=== PATIENT | female | born 1995 | race Caucasian/White ===

== ENCOUNTER 2017-07-07 06:28 | Inpatient (IN) | payer BC ==
--- NOTE | 2017-07-07 08:42 | HP ---
The patient is in room 3331. She has been in the room for 30 minutes. She is not on the computer [employer]. 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 She has not had any prior history of such symptoms in the emergency room, she underwent ultrasound revealing normal gallbladder ultrasound and CAT scan obtained revealed pericholecystic fluid. Patient's liver functio n tests are normal. White count 11, hemoglobin 15. When the patient was in high school, 17-18 years of age, she had it was like irritable bowel syndrome and had an upper endoscopy, documented ulcers, treated for PPIs. She has not been taking this PPIs recently. ALLERGIES: CEPHALOSPORINS. The patient received ZOSYN, partial dose signature resulting in hives an d respiratory distress. She subsequently received Levaquin there. TOBACCO: None. ALCOHOL: None. MEDICATIONS: None. PAST SURGICAL HISTORY: [place] tooth extraction. PAST MEDICAL HISTORY: As above, high school years, irritable bowel syndrome, upper and lower endosco py, camera endoscopy, PPIs treated ulcers, no recurrence. She has not been on PPIs for years. REVIEW OF SYSTEMS: [place] point noncontributory. PHYSICAL EXAMINATION: VITAL SIGNS: Blood pressure 115/68, respiratory rate 18, heart rate 68. HEENT: Unremarkable. Sclerae nonicteric. LUNGS: Clear to auscultation. CARDIAC: Regular rate and rhythm without murmur or gallop. ABDOMEN: Soft, tenderness in right upper quadrant with guarding. EXTREMITIES: Unremarkable. ASSESSMENT AND PLAN: History and exam suggestive of cholecystitis. Ultrasound is normal. CT scan s uggests garrett-inflammatory changes. We would recommend HIDA scan, ejection fraction and pending these results, she may need Gastroenterology consultation and we will await the results.
[2017-07-07] MEDS ORDERED: Acetaminophen 1,000 MG in Premix Bag 1 BAG IVPB PRN (09:03)
[2017-07-07] MEDS ORDERED: Ketorolac Tromethamine 30 MG/ML VIAL IVP PRN (09:03)
[2017-07-07] MEDS ORDERED: Scopolamine 1.5 mg/72 hour Patch TOP SCH (09:15)
[2017-07-07] MEDS: Pantoprazole 40 MG VIAL IVP SCH ×2 (09:40→19:56)
[2017-07-07] MEDS: Sodium Chloride 0.9% 1,000 ML IV SCH ×2 (09:41→18:17)
[2017-07-07 10:03] VITALS: BMI 22.7
[2017-07-07] MEDS ORDERED: Acetaminophen 1,000 MG in Premix Bag 1 BAG IVPB SCH (14:00)
[2017-07-07] MEDS ORDERED: Ketorolac Tromethamine 30 MG/ML VIAL IVP SCH (14:00)
[2017-07-07] MEDS ORDERED: Glycopyrrolate 0.2 MG/ML 5 ML SYRINGE ONE (14:13)
[2017-07-07] MEDS ORDERED: Lidocaine 1% PF 5 ML VIAL ONE (14:13)
[2017-07-07] MEDS ORDERED: Dexamethasone 20 MG/5 ML VIAL ONE (14:13)
[2017-07-07] MEDS ORDERED: Ondansetron HCl/PF 4 MG/2 ML Vial ONE (14:13)
[2017-07-07] MEDS ORDERED: PROPOFOL 200 MG/20 ML VIAL ONE (14:13)
--- NOTE | 2017-07-07 14:44 | NM ---
HEPATOBILIARY SCAN: The patient was given 4.8 mCi of Technetium labelled mebrofenin IV. HISTORY: Abdominal pain. FINDINGS: Initial imaging shows normal liver activity. The bile ducts begin to visualize by 10 minutes. Gallb ladder begins to visualize by 13 minutes. Intestinal activity is confirmed. At 1 hour the patient was given 1.2 mcg CCK slow IV. The gallbladder ejection fraction was recorded at 15%. IMPRESSION: 1. Normal visualization of the gallbladder. 2. Decreased gallbladder ejection fraction. POS: [facility]
[2017-07-07] MEDS ORDERED: Midazolam HCl 2 mg/2 ml Vial ONE ×2 (16:13→16:45)
[2017-07-07] MEDS ORDERED: Levofloxacin 500 mg/D5W 100 ml Premix Bag ONE (16:13)
[2017-07-07] MEDS ORDERED: Bupivacaine 0.25% HCL 30 ML VIAL ONE (16:41)
[2017-07-07] MEDS ORDERED: Lidocaine 1% w/Epinephrine 1:200K 30 ML VIAL ONE (16:41)
[2017-07-07] MEDS ORDERED: Fentanyl 100 MCG/2 ML VIAL ONE ×3 (16:45→18:45)
[2017-07-07] MEDS ORDERED: Bupivacaine PF 0.5% 30 ML VIAL ONE (17:06)
[2017-07-07] MEDS ORDERED: Morphine Sulfate 2 MG/ML SYRINGE SLOW IVP PRN (17:22)
[2017-07-07] MEDS ORDERED: HYDROmorphone 2 MG/ML VIAL SLOW IVP PRN (17:22)
[2017-07-07] MEDS ORDERED: Promethazine HCl 25 MG/ML VIAL SLOW IVP PRN (17:22)
[2017-07-07] MEDS ORDERED: Meperidine HCl/PF 25 MG/ML VIAL SLOW IVP PRN (17:22)
[2017-07-07] MEDS ORDERED: traMADol HCl 50 MG TAB PO PRN ×2 (17:55)
[2017-07-07] MEDS ORDERED: Acetaminophen 500 MG TAB PO PRN (17:55)
[2017-07-07 19:49] VITALS: BP 103/61; TEMP 97.7
--- NOTE | 2017-07-07 20:29 | OP ---
DATE OF PROCEDURE: 07/07/2017 PREOPERATIVE DIAGNOSES: Biliary dyskinesia, cholecystitis, history of peptic ulcer disease, history of Irritable bowel disease. PROCEDURES PERFORMED: Laparoscopic video cholecystectomy. Laparoscopic evaluation of the abdominal cavity, noting absence of Meckel's diverticulum, noting normal appendix, noting normal gynecological structures. EGD normal. SURGEON: Dr. Yosvany Carson ANESTHESIA: General. Local 0.25% Marcaine, 30 mL, mixed with 2% Xylocaine, 20 mL. PROCEDURE IN DETAIL: The patient was taken to the operating room where under general anesthesia, abd omen was prepared with ChloraPrep, draped in routine fashion. Local anesthetic mixture infiltrated i nto skin and subcutaneous tissue about each port site. Infraumbilical incision made and pneumoperito neum to 15 mmHg obtained with the Veress needle, replacing it with a 5 port and video laparoscope ins erted. Right subxiphoid incision made and a right subcostal incision made mid clavicular anterior ax illary lines and 5 mm ports placed. Liver appeared to be normal. Omentum was adherent to the gallbl adder body taken down with blunt and sharp dissection using cautery for hemostasis. Fundus grasped a nd reflected cephalad. Infundibulum of the gallbladder grasped and reflected laterally. Cystic lisa ry and duct dissected free. Critical view obtained with pericholecystic dissection 2/3 of the cystic plate, cystic artery and duct doubly clipped proximally, divided, and gallbladder dissected free fro m the liver bed obtaining good hemostasis prior to division of final peritoneal attachments. Gallbla dder removed and submitted to Pathology. It would look normal on the inside. Appendix noted to be n ormal. Small bowel noted to be normal from the cecum proximally 3 feet. No Meckel's diverticulum no mayra. Gynecological structures noted to be normal. Irrigant and pneumoperitoneum evacuated after goo d hemostasis ensured. All skin incisions approximated with interrupted subdermal 4-0 Monocryl and De rmaGlue applied. Upper endoscopy performed, placed the endoscope per os after lubrication into the stomach through the pylorus, into the duodenum and duodenum, pyloric channel, antrum, body, fundus of the stomach noted to be normal. Retroflexion of the scope revealed normal GE junction and esophagus. Normal stomach, decompressed, and scope removed. The patient tolerated the procedure well.
--- NOTE | 2017-07-08 02:32 | DIS ---
DATE OF ADMISSION: 07/07/2017 DATE OF DISCHARGE: 07/07/2017 DISCHARGE DIAGNOSES: Biliary dyskinesia, abdominal pain, history of peptic ulcer disease. PROCEDURES: HIDA scan ejection fraction, laparoscopic cholecystectomy, EGD. HISTORY: A 22-year-old female with the past history in 17-18 years of age, undergoing an upper and l ower endoscopy, camera endoscopy for abdominal pain diagnosed with irritable bowel. She has been hav ing intermittent problems with bloating, belching, indigestion, epigastric right upper quadrant pain, postprandial. Patient presented on this occasion with a severe episode presented to the [facility] mergenhy room, undergoing workup with normal liver function tests, normal CBC. Ultrasound of gallbla dder was normal. CAT scan suggested pericholecystic inflammation, no stones were noted. Patient was transferred to [facility], admitted. HIDA scan ejection fraction obtained and noted 15% ga llbladder ejection fraction. I then counseled the patient and her mother regarding options. I did g iraj them the options for laparoscopic cholecystectomy versus observation, they chose laparoscopic cho lecystectomy today, it help alleviate her long history of symptoms and recurrent pain. She underwent laparoscopic cholecystectomy and noting normal appendix, normal small bowel and no Meckel's divertic ulum and cholecystectomy performed. Under the same anesthesia, underwent EGD due to past history of peptic ulcer disease treated, but currently not on PPIs. EGD was normal. Patient tolerated the proc edure well and discharged home with Tylenol, ibuprofen for pain and p.r.n. Ultram for breakthrough pa in. Diet and activity as tolerated. Follow up in my office in 2-3 weeks.
[2017-07-08] MEDS ORDERED: NORETHINDRONE 0.35 MG PO SCH (09:00)
[2017-07-12] MEDS ORDERED: Ibuprofen 600 MG TAB PO PRN (12:00)
== END 2017-07-07 22:23 | disposition home or self-care (01) | DRG 418 ==
LOC: SURG A 06:28
PROVIDERS: ADMIT Specialist; ATTEND Specialist
PROC: 0FT44ZZ Resection of Gallbladder, Percutaneous Endoscopic Approach (ICD-10-PCS; principal; 2017-07-07)
PROC: 0DJ08ZZ Inspection of Upper Intestinal Tract, Via Natural or Artificial Opening Endoscopic (ICD-10-PCS; 2017-07-07)
DX: K82.8 Other specified diseases of gallbladder (principal); K81.0 Acute cholecystitis; K58.9 Irritable bowel syndrome, unspecified; Z88.1 Allergy status to other antibiotic agents
CPT/HCPCS: 78227; 88304; A9537; C9113; J0131; J1100; J1885; J1956; J2001; J2250; J2405; J2704; J3010; S0020